=== PATIENT | male | born 1985 | race African-American/Black ===

== ENCOUNTER 2018-11-01 09:27 | Emergency (ER) | payer MEDICAID ==
[~2018-11-01] VITALS: Ht 152.4 cm; Wt 56.8 kg
[2018-11-01 09:29] VITALS: Ht 152.4 cm; Wt 56.8 kg
[2018-11-01] MEDS ORDERED: TORADOL10 MG PO (10:46)
[2018-11-01 11:26] VITALS: BP 133/82
== END 2018-11-01 11:27 | disposition home or self-care (01) ==
LOC: D.ER 09:27
DX: S46.812A Strain of other muscles, fascia and tendons at shoulder and upper arm level, left arm, initial encounter (principal); X50.0XXA Overexertion from strenuous movement or load, initial encounter; Y93.89 Activity, other specified; Y92.019 Unspecified place in single-family (private) house as the place of occurrence of the external cause

== ENCOUNTER 2019-10-15 11:31 | Emergency (ER) | payer MEDICAID ==
[~2019-10-15] VITALS: Ht 152.4 cm; Wt 56.8 kg
[~2019-10-15 11:31] MED LIST: TORADOL10 MG PO
[2019-10-15 11:36] VITALS: Ht 152.4 cm; Wt 56.8 kg
[2019-10-15 12:11] LABS: BASOPHILS 0.3 % (0-2); EOSINOPHILS 10.2 % (0-7); HEMATOCRIT 44.6 % (42.0-54.0); HEMOGLOBIN 15.1 g/dL (13.5-17.5); IMMATURE GRANULOCYTES 0.3 % (0-5); LYMPHOCYTES 28.2 % (15-50); MCH 32.5 pg (26.0-34.0); MCHC 33.9 g/dL (31.0-37.0); MCV 96.1 fL (80.0-100.0); MONOCYTES 6.6 % (2-11); NEUTROPHILS 54.4 % (40-80); PLATELET COUNT 164 10x3/uL (130-400); RBC 4.64 10x6/uL (4.20-6.10); RDW 12.2 % (11.5-14.5); WBC 7.4 10x3/uL (4.8-10.8)
[2019-10-15] MEDS ORDERED: ZOFRAN ODT4 MG/UDTAB PO ×2 (12:43→13:57)
[2019-10-15 12:44] LABS: ANION GAP 13.5 mmol/L (8-16); CALCIUM 9.6 mg/dL (8.5-10.1); CARBON DIOXIDE 27.2 mmol/L (21.0-32.0); CREATININE - SERUM 1.2 mg/dL (0.6-1.3); POTASSIUM - SERUM 4.7 mmol/L (3.5-5.1)
[2019-10-15 12:51] LABS: ALBUMIN 3.9 g/dL (3.4-5.0); BILIRUBIN - TOTAL 0.72 mg/dL (0.2-1.3); PROTEIN - SERUM 7.4 g/dL (6.4-8.2)
[2019-10-15] MEDS ORDERED: OMEPRAZOLE20 M1 PO (13:57)
[2019-10-15 14:23] VITALS: BP 114/64
== END 2019-10-15 14:24 | disposition home or self-care (01) ==
LOC: D.ER 11:31
PROVIDERS: Emergency Medicine
DX: K22.6 Gastro-esophageal laceration-hemorrhage syndrome (principal); R11.2 Nausea with vomiting, unspecified

== ENCOUNTER 2020-05-08 21:28 | Emergency (ER) | payer MEDICAID ==
[~2020-05-08] VITALS: Ht 152.4 cm; Wt 56.8 kg
[~2020-05-08 21:28] MED LIST changes: +OMEPRAZOLE20 M1 PO; +ZOFRAN ODT4 MG/UDTAB PO
[2020-05-08 21:36] VITALS: Ht 152.4 cm; Wt 56.8 kg
[2020-05-08] MEDS ORDERED: NAPROSYN500 MG PO (23:53)
[2020-05-09 00:20] VITALS: BP 145/84
== END 2020-05-09 00:20 | disposition home or self-care (01) ==
LOC: D.ER 21:28
DX: M79.605 Pain in left leg (principal); M79.604 Pain in right leg